=== PATIENT | male | born 1965 | race African-American/Black ===

== ENCOUNTER 2019-07-20 10:38 | Inpatient (IN) | payer OTHER ==
--- NOTE | 2019-07-20 11:01 | BHS.RME ---
Substance Use & Tx History - Substance Use History Opiates (Heroin) Substance amount: 3-4 bags Frequency of use: Daily Substance route: Inhalation (ex: sniffing or snorting) Date of Last Use: 07/19/19 Physical/Psych/Mental Status - Behavior General Behavior: Increased activity (restlessness, agitation) Eye Contact: Normal - Cooperativeness Cooperativeness: Cooperative - Thinking Thought Processes: Tight, Logical, Goal Directed Thought content: Future oriented - Physical Health Problems Is patient presently having any pain?: No Does patient presently have any injuries (include location): No Does patient currently have a fever: No Is patient : No COWS - Scale Resting Pulse: 1= [place] 81-100 Sweatin=Flushed/Facial Moisture Restless Observation: 1= Difficult to Sit Still Pupil Size: 0= Normal to Room Light Bone or Joint Aches: 1= Mild Discomfort Runny Nose/ Eye Tearin= Nasal Congestion GI Upset > 30mins: 1= Stomach Cramp Tremor Observation: 0= None Yawning Observation: 0= None Anxiety or Irritability: 2=Irritable/Anxious Goose Flesh Skin: 3=Piloerection (patient last used yesterday) COWS Score: 12
--- NOTE | 2019-07-20 13:09 | HP ---
COWS - Scale Resting Pulse: 1= [place] 81-100 Sweatin=Flushed/Facial Moisture Restless Observation: 1= Difficult to Sit Still Pupil Size: 0= Normal to Room Light Bone or Joint Aches: 1= Mild Discomfort Runny Nose/ Eye Tearin= Nasal Congestion GI Upset > 30mins: 1= Stomach Cramp Tremor Observation: 0= None Yawning Observation: 0= None Anxiety or Irritability: 2=Irritable/Anxious Goose Flesh Skin: 3=Piloerection (patient last used yesterday) COWS Score: 12 CIWA Score - Admission Criteria OASAS Guidelines: Admission for Medically Managed Detox: Requires at least one of the followin. CIWA greater than 12 2. Seizures within the past 24 hours 3. Delirium tremens within the past 24 hours 4. Hallucinations within the past 24 hours 5. Acute intervention needed for co occurring medical disorder 6. Acute intervention needed for co occurring psychiatric disorder 7. Severe withdrawal that cannot be handled at a lower level of care (continued vomiting, continued diarrhea, abnormal vital signs) requiring intravenous medication and/or fluids 8. Admitting History and Physical - Admission Chief Complaint: " I want to get my life together and stop using." History of Present Illness: 54 year old male with history of opioid dependence, marijuana use disorder and nicotine dependence. He was in detox 20 yeas ago in [facility]. He is S/P [facility] 4 233ks ago where he was told he had a " bad heart". He was told to follow up for the diagnosis. He has VALERA with one flight of stairs. He was given a diuretic. Heroin: 3-4 bags per day intranasally and last used 07/19/19 No OD and started using at age 29. Nicotine: 8-9 ciggs per day last used today. He started smoke at age 19 Marijuana: Very sporadic, last used 1 month ago. PMH: Heart Problem? Meds: Carvedilol 3.125mg daily and losartan 40 mg daily He is seeking detox because he is afraid of overdosing. He is also homeless. He is at high risk for OD and has co-morbid disorders that would complicated detox as an outpatient. He needs inpatient detox. History Source: Patient - Past Medical History Cardiovascular: Yes: Other (unknown cardiac condition) - Past Surgical History Past Surgical History: Yes: None - Smoking History Smoking history: Current every day smoker Have you smoked in the past 12 months: Yes Aproximately how many cigarettes per day: 9 - Alcohol/Substance Use Hx Alcohol Use: No History of Substance Use: reports: Heroin, Marijuana - Social History Usual Living Arrangement: Yes: Alone Admission ROS [facility] - [facility] Exam Limitations: No Limitations - Ebola screening Have you traveled outside of the country in the last 21 days: No Have you had contact with anyone from an Ebola affected area: No Have you been sick,other than usual withdrawal symptoms: No Do you have a fever: No - Review of Systems Constitutional: No Symptoms Reported EENT: reports: No Symptoms Reported Respiratory: reports: No Symptoms reported Cardiac: reports: No Symptoms Reported GI: reports: No Symptoms Reported : reports: No Symptoms Reported Musculoskeletal: reports: Other (bilateral pedal edema) Integumentary: reports: No Symptoms Reported Neuro: reports: No Symptoms reported Endocrine: reports: No Symptoms Reported Hematology: reports: No Symptoms Reported Psychiatric: reports: Judgement Intact, Orientated x3, Agitated, Anxious Other Systems: Reviewed and Negative Patient History - Patient Medical History Hx Anemia: No Hx Asthma: No Hx Chronic Obstructive Pulmonary Disease (COPD): No Hx Cancer: No Hx Cardiac Disorders: No Hx Congestive Heart Failure: No Hx Hypertension: Yes Hx Hypercholesterolemia: No Hx Pacemaker: No HX Cerebrovascular Accident: No Hx Seizures: No Hx Dementia: No Hx Diabetes: No Hx Gastrointestinal Disorders: No Hx Liver Disease: No Hx Genitourinary Disorders: No Hx Sexually Transmitted Disorders: No Hx Renal Disease (ESRD): No Hx Thyroid Disease: No Hx Human Immunodeficiency Virus (HIV): No (last tested 2 months ago negative) Hx Hepatitis C: No (last tested 2 weeks ago negative) Hx Depression: No Hx Suicide Attempt: No Hx Bipolar Disorder: No Hx Schizophrenia: No - Patient Surgical History Past Surgical History: No - PPD History Previous Implant?: Yes Documented Results: Negative w/o proof Implanted On Prior [facility] Admission?: Yes Date: 04/27/19 (at [facility]) Results: negative PPD to be Administered?: Yes - Smoking Cessation Smoking history: Current every day smoker Have you smoked in the past 12 months: Yes Aproximately how many cigarettes per day: 9 Hx Chewing Tobacco Use: No Initiated information on smoking cessation: Yes 'Breaking Loose' booklet given: 07/20/19 - Substances abused Heroin Other (specify): 3-4 bags Substance route: Inhalation Frequency: Daily Amount used: 3-4 bags Age of first use: 29 Date of last use: 07/19/19 Marijuana/Hashish Substance route: Smoking Frequency: 1-3 times last 30 days Amount used: 1 blunt Age of first use: 21 Date of last use: 06/22/19 Admission Physical Exam [facility] - Physical General Appearance: Yes: Mild Distress, Tremorous, Irritable, Sweating, Anxious HEENTM: Yes: EOMI, Hearing grossly Normal, Normal ENT Inspection, Normocephalic , Normal Voice, TUCKER, Pharynx Normal, Tm's normal Respiratory: Yes: Chest Non-Tender, Lungs Clear, Normal Breath Sounds, No Respiratory Distress, No Accessory Muscle Use Neck: Yes: No masses,lesions,Nodules, Supple, Trachea in good position Breast: Yes: Within Normal Limits Cardiology: Yes: Regular Rhythm, S1, S2, Tachycardia Abdominal: Yes: Normal Bowel Sounds, Non Tender, Flat, Soft Genitourinary: Yes: Within Normal Limits Back: Yes: Normal Inspection Musculoskeletal: Yes: full range of Motion, Gait Steady, Pelvis Stable Extremities: Yes: Normal Capillary Refill, Normal Inspection, Normal Range of Motion, Non-Tender Neurological: Yes: exit booth agent II-XII NML intact, Fully Oriented, Alert, Motor Strength 5/5, Normal Mood/Affect, Normal Response Integumentary: Yes: Normal Color, Warm Lymphatic: Yes: Within Normal Limits - Diagnostic (1) Opioid dependence with withdrawal Current Visit: Yes Status: Acute (2) Nicotine dependence Current Visit: Yes Status: Acute (3) Cannabis use disorder, mild, abuse Current Visit: Yes Status: Acute (4) Hypertension Current Visit: Yes Status: Acute Cleared for Admission [facility] - Detox or Rehab [facility] Level of Care: Medically Managed Detox Regimen/Protocol: Methadone Claeared for Rehab Admission: No Screened but not Admitted - Documentation of Visit Screened but not Admitted: No Breathalyzer - Breathalyzer Breathalyzer: 0 Urine Drug Screen - Test Device Lot number: [id number] Expiration date: 04/24/21 - Control Is test valid?: Yes - Results Drug screen NEGATIVE: No Urine drug screen results: THC-Marijuana, WALE-Cocaine, FEN-Fentanyl, MOP-Opiates Inpatient Rehab Admission - Rehab Decision to Admit Inpatient rehab admission?: No
[2019-07-20] MEDS ORDERED: BISMUTH SUBSALICYLATE 262 MG/15 ML BTL PO PRN (13:21)
[2019-07-20] MEDS ORDERED: MAGNESIUM CITRATE 300 ML BOTTLE PO PRN (13:21)
[2019-07-20] MEDS ORDERED: MENTHOL/PHENOL 1 EACH UD MM PRN (13:21)
[2019-07-20] MEDS ORDERED: ACETAMINOPHEN 325 MG TABLET (FP) PO PRN ×2 (13:21)
[2019-07-20] MEDS ORDERED: hydrOXYzine PAMOATE 25 MG CAPSULE (FP) PO PRN (13:21)
[2019-07-20] MEDS ORDERED: MAG HYDROX/AL HYDROX/SIMETH 30 ML UNIT-DOSE CUP PO PRN (13:21)
[2019-07-20] MEDS ORDERED: MAGNESIUM HYDROX 2400MG/30ML ORAL SUSPENSION 30 ML CUP PO PRN (13:21)
[2019-07-20] MEDS ORDERED: IBUPROFEN 400 MG TABLET (FP) PO PRN (13:21)
[2019-07-20] MEDS ORDERED: cloNIDine HCL 0.1 MG TABLET PO PRN (13:21)
[2019-07-20] MEDS ORDERED: METHOCARBAMOL 500 MG TABLET PO PRN (13:21)
[2019-07-20 13:42] VITALS: BMI 23.7
[2019-07-20] MEDS ORDERED: METHADONE HCL 10 MG TABLET (FOR DETOX USE ONLY) PO ONE (14:20)
[2019-07-20] MEDS: NICOTINE 7 MG/24 HOURS TOPICAL PATCH TD SCH (14:40)
[2019-07-20] MEDS: LOSARTAN 50MG/HCTZ 12.5MG 1 TAB (FP) PO SCH (14:41)
[2019-07-20] MEDS: CARVEDILOL 3.125 MG TABLET (FP) PO SCH ×2 (14:41→21:31)
[2019-07-20] MEDS: THIAMINE HCL 100 MG TABLET (FP) PO SCH (21:31)
[2019-07-21] MEDS ORDERED: METHADONE HCL 5 MG TABLET (FOR DETOX USE ONLY) ONE (09:11)
[2019-07-21] MEDS ORDERED: METHADONE HCL 10 MG TABLET (FOR DETOX USE ONLY) ONE (09:11)
[2019-07-21] MEDS ORDERED: METHADONE (DETOX) 20 MG, METHADONE (DETOX) 5 MG PO ONE (10:00)
[2019-07-21] MEDS: LOSARTAN 50MG/HCTZ 12.5MG 1 TAB (FP) PO SCH (10:23)
[2019-07-21] MEDS: PRENATAL VITAMINS W/ FOLIC ACID TABLET (FP) PO SCH (10:23)
[2019-07-21] MEDS: CARVEDILOL 3.125 MG TABLET (FP) PO SCH ×2 (10:24→22:52)
[2019-07-21] MEDS: NICOTINE 7 MG/24 HOURS TOPICAL PATCH TD SCH (10:51)
[2019-07-21 10:56] LABS: HEMATOCRIT 32.5 % (35.4-49); HEMOGLOBIN 10.6 GM/dL (11.7-16.9); MCHC 32.7 g/dl (32.0-35.9); MEAN CELL VOLUME 85.6 fl (80-96); MEAN PLT VOLUME 8.4 fl (7.5-11.1); PLATELET COUNT 332 K/MM3 (134-434); RDW 15.9 % (11.9-15.9); WHITE BLOOD COUNT 7.8 K/mm3 (4.0-10.0)
[2019-07-21] MEDS ORDERED: LOPERAMIDE HCL 2 MG CAPSULE PO ONE (11:09)
[2019-07-21] MEDS ORDERED: ACETAMINOPHEN 325 MG TABLET (FP) PO ONE (11:09)
[2019-07-21] MEDS ORDERED: CARVEDILOL 3.125 MG TABLET (FP) PO SCH (11:11)
[2019-07-21] MEDS ORDERED: LOSARTAN 50MG/HCTZ 12.5MG 1 TAB (FP) PO SCH (11:12)
--- NOTE | 2019-07-21 11:17 | PN ---
BHS COWS - Scale Resting Pulse: 1= [place] 81-100 Sweatin= Chills/Flushing Restless Observation: 0= Sits Still Pupil Size: 1= Pupils >than Normal Bone or Joint Aches: 2= Severe Diffuse Aches Runny Nose/ Eye Tearin= None GI Upset > 30mins: 0= None Tremor Observation of Outstretched Hands: 0= None Yawning Observation: 0= None Anxiety or Irritability: 2=Irritable/Anxious Goose Flesh Skin: 3=Piloerection COWS Score: 10 BHS Progress Note (SOAP) Subjective: 54 years old male admitted on 07/20/19 for opiate withdrawal sx management treating with methadone detox regiment general body aches tylenal 650mg po x 1 loose stool after breakfast imodium 4 mg po x 1 Objective: 07/21/19 11:16 Vital Signs Temperature 96.7 F L 07/21/19 08:46 Pulse Rate 89 07/21/19 08:46 Respiratory Rate 18 07/21/19 08:46 Blood Pressure 116/77 07/21/19 08:46 O2 Sat by Pulse Oximetry (%) Laboratory Last Values WBC 7.8 K/mm3 (4.0-10.0) 07/21/19 08:00 RBC 3.80 M/mm3 (4.00-5.60) L 07/21/19 08:00 Hgb 10.6 GM/dL (11.7-16.9) L 07/21/19 08:00 Hct 32.5 % (35.4-49) L 07/21/19 08:00 MCV 85.6 fl (80-96) 07/21/19 08:00 MCH 28.0 pg (25.7-33.7) 07/21/19 08:00 MCHC 32.7 g/dl (32.0-35.9) 07/21/19 08:00 RDW 15.9 % (11.9-15.9) 07/21/19 08:00 Plt Count 332 K/MM3 (134-434) 07/21/19 08:00 MPV 8.4 fl (7.5-11.1) 07/21/19 08:00 lab noted Assessment: 07/21/19 11:17 opiate withdrawal Plan: methadone regiment
[2019-07-21 11:39] LABS: ALBUMIN 2.1 g/dl (3.4-5.0); BILIRUBIN,TOTAL 0.3 mg/dL (0.2-1); BLOOD UREA NITROGEN 30.5 mg/dL (7-18); CALCIUM 8.4 mg/dL (8.5-10.1); CREATININE 1.2 mg/dL (0.55-1.3); POTASSIUM 3.5 mmol/L (3.5-5.1); TOT PROT 5.3 g/dl (6.4-8.2)
[2019-07-21] MEDS: THIAMINE HCL 100 MG TABLET (FP) PO SCH (22:52)
[2019-07-21] MEDS: MELATONIN 5 MG TABLETS PO PRN (22:52)
[2019-07-22] MEDS ORDERED: METHADONE HCL 10 MG TABLET (FOR DETOX USE ONLY) PO ONE (10:00)
[2019-07-22] MEDS: LOSARTAN 50MG/HCTZ 12.5MG 1 TAB (FP) PO SCH (10:16)
[2019-07-22] MEDS: CARVEDILOL 3.125 MG TABLET (FP) PO SCH ×2 (10:16→22:39)
[2019-07-22] MEDS: NICOTINE 7 MG/24 HOURS TOPICAL PATCH TD SCH (10:17)
[2019-07-22] MEDS: PRENATAL VITAMINS W/ FOLIC ACID TABLET (FP) PO SCH (10:17)
--- NOTE | 2019-07-22 12:03 | PN ---
BHS COWS - Scale Resting Pulse: 1= [place] 81-100 Sweatin= Chills/Flushing Restless Observation: 0= Sits Still Pupil Size: 1= Pupils >than Normal Bone or Joint Aches: 1= Mild Discomfort Runny Nose/ Eye Tearin= None GI Upset > 30mins: 2= Nausea/Diarrhea Tremor Observation of Outstretched Hands: 1= Tremor [place], Not Seen Yawning Observation: 0= None Anxiety or Irritability: 1=Feels Anxious/Irritable Goose Flesh Skin: 0=Smooth Skin COWS Score: 8 BHS Progress Note (SOAP) Subjective: 54 years old male admitted on 07/20/19 for opiate withdrawal sx management treating with methadone detox regiment feeling ok today ambulating on hallway with cane steady gait with mild general body aches Objective: 07/22/19 12:08 Vital Signs Temperature 96.7 F L 07/22/19 08:38 Pulse Rate 90 07/22/19 08:38 Respiratory Rate 18 07/22/19 08:38 Blood Pressure 110/79 07/22/19 08:38 O2 Sat by Pulse Oximetry (%) Laboratory Last Values WBC 7.8 K/mm3 (4.0-10.0) 07/21/19 08:00 RBC 3.80 M/mm3 (4.00-5.60) L 07/21/19 08:00 Hgb 10.6 GM/dL (11.7-16.9) L 07/21/19 08:00 Hct 32.5 % (35.4-49) L 07/21/19 08:00 MCV 85.6 fl (80-96) 07/21/19 08:00 MCH 28.0 pg (25.7-33.7) 07/21/19 08:00 MCHC 32.7 g/dl (32.0-35.9) 07/21/19 08:00 RDW 15.9 % (11.9-15.9) 07/21/19 08:00 Plt Count 332 K/MM3 (134-434) 07/21/19 08:00 MPV 8.4 fl (7.5-11.1) 07/21/19 08:00 Sodium 141 mmol/L (136-145) 07/21/19 08:00 Potassium 3.5 mmol/L (3.5-5.1) 07/21/19 08:00 Chloride 108 mmol/L (98-107) H 07/21/19 08:00 Carbon Dioxide 24 mmol/L (21-32) 07/21/19 08:00 Anion Gap 9 MMOL/L (8-16) 07/21/19 08:00 BUN 30.5 mg/dL (7-18) H 07/21/19 08:00 Creatinine 1.2 mg/dL (0.55-1.3) 07/21/19 08:00 Est GFR (CKD-EPI)AfAm 79.53 07/21/19 08:00 Est GFR (CKD-EPI)NonAf 68.62 07/21/19 08:00 Random Glucose 94 mg/dL (74-106) 07/21/19 08:00 Calcium 8.4 mg/dL (8.5-10.1) L 07/21/19 08:00 Total Bilirubin 0.3 mg/dL (0.2-1) 07/21/19 08:00 AST 28 U/L (15-37) 07/21/19 08:00 ALT 44 U/L (13-61) 07/21/19 08:00 Alkaline Phosphatase 213 U/L (45-117) H 07/21/19 08:00 Total Protein 5.3 g/dl (6.4-8.2) L 07/21/19 08:00 Albumin 2.1 g/dl (3.4-5.0) L 07/21/19 08:00 RPR Titer Nonreactive (NONREACTIVE) 07/21/19 08:00 lab noted bun elevation repeat bun Assessment: 07/22/19 12:11 opiate withdrawal Plan: methadone regiment
[2019-07-22] MEDS: MELATONIN 5 MG TABLETS PO PRN (22:39)
[2019-07-22] MEDS: THIAMINE HCL 100 MG TABLET (FP) PO SCH (22:39)
[2019-07-23] MEDS ORDERED: METHADONE HCL 10 MG TABLET (FOR DETOX USE ONLY) ONE (09:31)
[2019-07-23] MEDS ORDERED: METHADONE HCL 5 MG TABLET (FOR DETOX USE ONLY) ONE (09:32)
[2019-07-23] MEDS ORDERED: METHADONE (DETOX) 10 MG, METHADONE (DETOX) 5 MG PO ONE (10:00)
[2019-07-23] MEDS: PRENATAL VITAMINS W/ FOLIC ACID TABLET (FP) PO SCH (10:11)
[2019-07-23] MEDS: LOSARTAN 50MG/HCTZ 12.5MG 1 TAB (FP) PO SCH (10:11)
[2019-07-23] MEDS: CARVEDILOL 3.125 MG TABLET (FP) PO SCH ×2 (10:11→22:22)
[2019-07-23] MEDS: NICOTINE 7 MG/24 HOURS TOPICAL PATCH TD SCH (10:13)
--- NOTE | 2019-07-23 10:50 | PN ---
BHS COWS - Scale Resting Pulse: 1= [place] 81-100 Sweatin= No chills or Flushing Restless Observation: 1= Difficult to Sit Still Pupil Size: 1= Pupils >than Normal Bone or Joint Aches: 1= Mild Discomfort Runny Nose/ Eye Tearin= Nasal Congestion GI Upset > 30mins: 1= Stomach Cramp Tremor Observation of Outstretched Hands: 1= Tremor [place], Not Seen Yawning Observation: 1= 1-2x During Session Anxiety or Irritability: 2=Irritable/Anxious Goose Flesh Skin: 0=Smooth Skin COWS Score: 10 [facility] Progress Note (SOAP) Subjective: alert,irritable,anxious, interrupted sleep,pain in the body Objective: 07/23/19 10:49 Vital Signs Temperature 96.6 F L 07/23/19 08:52 Pulse Rate 82 07/23/19 08:52 Respiratory Rate 16 07/23/19 08:52 Blood Pressure 106/71 07/23/19 08:52 O2 Sat by Pulse Oximetry (%) 07/23/19 10:50 repeat bun pending Assessment: 07/23/19 10:51 withdrawal symptom Plan: continue detox methadone regimen,encourage oral fluid
--- NOTE | 2019-07-23 12:56 | PN ---
BHS COWS - Scale Resting Pulse: 0= [place] 80 or Below Sweatin= No chills or Flushing Restless Observation: 0= Sits Still Pupil Size: 0= Normal to Room Light Bone or Joint Aches: 0= None Runny Nose/ Eye Tearin= Runny Nose/Eyes GI Upset > 30mins: 1= Stomach Cramp Tremor Observation of Outstretched Hands: 0= None Yawning Observation: 0= None Anxiety or Irritability: 1=Feels Anxious/Irritable Goose Flesh Skin: 0=Smooth Skin COWS Score: 4 BHS Progress Note (SOAP) Subjective: Laboratory Tests 07/21/19 07/21/19 07/21/19 08:00 08:00 08:00 WBC 7.8 RBC 3.80 L Hgb 10.6 L Hct 32.5 L MCV 85.6 MCH 28.0 MCHC 32.7 RDW 15.9 Plt Count 332 MPV 8.4 Sodium 141 Potassium 3.5 Chloride 108 H Carbon Dioxide 24 Anion Gap 9 BUN 30.5 H Creatinine 1.2 Est GFR (CKD-EPI)AfAm 79.53 Est GFR (CKD-EPI)NonAf 68.62 Random Glucose 94 Calcium 8.4 L Total Bilirubin 0.3 AST 28 ALT 44 Alkaline Phosphatase 213 H Total Protein 5.3 L Albumin 2.1 L RPR Titer Nonreactive 07/23/19 08:05 WBC RBC Hgb Hct MCV MCH MCHC RDW Plt Count MPV Sodium Potassium Chloride Carbon Dioxide Anion Gap BUN 17.4 Creatinine Est GFR (CKD-EPI)AfAm Est GFR (CKD-EPI)NonAf Random Glucose Calcium Total Bilirubin AST ALT Alkaline Phosphatase Total Protein Albumin RPR Titer Vital Signs Temperature 96.6 F L 07/23/19 08:52 Pulse Rate 82 07/23/19 08:52 Respiratory Rate 16 07/23/19 08:52 Blood Pressure 106/71 07/23/19 08:52 O2 Sat by Pulse Oximetry (%) Subjective: complains of dry skin Objective: 07/23/19 12:56 PE Gnl: WDWN, in no distress Mental status: awake, alert, nl language Motor: grossly nl Coord: nl Assessment: 07/23/19 12:56 1. Opioid use disorder 2. Dry skin Plan: 1. continue Methadone withdrawal protocol
[2019-07-23] MEDS ORDERED: COLLOIDAL OATMEAL 1 BAR EACH TP PRN (13:00)
[2019-07-23] MEDS ORDERED: VITAMINS A AND D TOPICAL OINTMENT 60 GM TUBE TP PRN (13:01)
[2019-07-23] MEDS: THIAMINE HCL 100 MG TABLET (FP) PO SCH (22:22)
[2019-07-23] MEDS: MELATONIN 5 MG TABLETS PO PRN (22:23)
[2019-07-24 09:51] VITALS: BP 110/75; PULSE 95; TEMP 95.8
[2019-07-24] MEDS ORDERED: METHADONE HCL 10 MG TABLET (FOR DETOX USE ONLY) PO ONE (10:00)
[2019-07-24] MEDS: LOSARTAN 50MG/HCTZ 12.5MG 1 TAB (FP) PO SCH (10:08)
[2019-07-24] MEDS: PRENATAL VITAMINS W/ FOLIC ACID TABLET (FP) PO SCH (10:09)
[2019-07-24] MEDS: CARVEDILOL 3.125 MG TABLET (FP) PO SCH (10:09)
[2019-07-24] MEDS: NICOTINE 7 MG/24 HOURS TOPICAL PATCH TD SCH (10:09)
--- NOTE | 2019-07-24 13:25 | DS ---
[facility] Detox Discharge Summary Admission Date: 07/20/19 Discharge Date: 07/24/19 - History Present History: Cannabis Dependence, Opioid Dependence Additional Comments: As per H&P: "54 year old male with history of opioid dependence, marijuana use disorder and nicotine dependence. He was in detox 20 yeas ago in [facility]. He is S/P [facility] 4 233ks ago where he was told he had a " bad heart". He was told to follow up for the diagnosis. He has VALERA with one flight of stairs. He was given a diuretic. Heroin: 3-4 bags per day intranasally and last used 07/19/19 No OD and started using at age 29. Nicotine: 8-9 ciggs per day last used today. He started smoke at age 19. Marijuana: Very sporadic, last used 1 month ago.PMH: Heart Problem? Meds: Carvedilol 3.125mg daily and losartan 40 mg daily. He is seeking detox because he is afraid of overdosing. He is also homeless. He is at high risk for OD and has co-morbid disorders that would complicated detox as an outpatient. He needs inpatient detox". Pt is medically cleared and discharged today. Pt is not on detox protocol. Pt requested to leave today. Pt is encouraged to follow-up with an outpatient CD program and also to follow-up with his pmd. Pt verbalized understanding of the information given. Pt is alert and oriented x3 and in no acute respiratory distress. Pertinent Past History: h/o heroin and cannabis use disorder. - Physical Exam Results Vital Signs: Vital Signs Temperature 95.8 F L 07/24/19 09:17 Pulse Rate 95 H 07/24/19 09:17 Respiratory Rate 16 07/24/19 09:17 Blood Pressure 110/75 07/24/19 09:17 O2 Sat by Pulse Oximetry (%) Vital Signs 07/24/19 07/24/19 07/24/19 06:33 07:15 09:17 Temperature 97.6 F 95.8 F L Pulse Rate 92 H 95 H Respiratory 16 16 16 Rate Blood Pressure 100/64 110/75 Laboratory Last Values WBC 7.8 K/mm3 (4.0-10.0) 07/21/19 08:00 RBC 3.80 M/mm3 (4.00-5.60) L 07/21/19 08:00 Hgb 10.6 GM/dL (11.7-16.9) L 07/21/19 08:00 Hct 32.5 % (35.4-49) L 07/21/19 08:00 MCV 85.6 fl (80-96) 07/21/19 08:00 MCH 28.0 pg (25.7-33.7) 07/21/19 08:00 MCHC 32.7 g/dl (32.0-35.9) 07/21/19 08:00 RDW 15.9 % (11.9-15.9) 07/21/19 08:00 Plt Count 332 K/MM3 (134-434) 07/21/19 08:00 MPV 8.4 fl (7.5-11.1) 07/21/19 08:00 Sodium 141 mmol/L (136-145) 07/21/19 08:00 Potassium 3.5 mmol/L (3.5-5.1) 07/21/19 08:00 Chloride 108 mmol/L (98-107) H 07/21/19 08:00 Carbon Dioxide 24 mmol/L (21-32) 07/21/19 08:00 Anion Gap 9 MMOL/L (8-16) 07/21/19 08:00 BUN 17.4 mg/dL (7-18) 07/23/19 08:05 Creatinine 1.2 mg/dL (0.55-1.3) 07/21/19 08:00 Est GFR (CKD-EPI)AfAm 79.53 07/21/19 08:00 Est GFR (CKD-EPI)NonAf 68.62 07/21/19 08:00 Random Glucose 94 mg/dL (74-106) 07/21/19 08:00 Calcium 8.4 mg/dL (8.5-10.1) L 07/21/19 08:00 Total Bilirubin 0.3 mg/dL (0.2-1) 07/21/19 08:00 AST 28 U/L (15-37) 07/21/19 08:00 ALT 44 U/L (13-61) 07/21/19 08:00 Alkaline Phosphatase 213 U/L (45-117) H 07/21/19 08:00 Total Protein 5.3 g/dl (6.4-8.2) L 07/21/19 08:00 Albumin 2.1 g/dl (3.4-5.0) L 07/21/19 08:00 RPR Titer Nonreactive (NONREACTIVE) 07/21/19 08:00 Labs noted. Pertinent Admission Physical Exam Findings: withdrawal symptoms. - Treatment Hospital Course: Detox Protocol Followed, Detoxed Safely, Responded well, Discharged Condition Good - Medication Discharge Medications: Ambulatory Orders Carvedilol [Coreg -] 3.125 mg PO BID 07/20/19 Losartan Potassium [Cozaar -] 50 mg PO DAILY 07/20/19 - Diagnosis (1) Cannabis use disorder, mild, abuse Current Visit: Yes Status: Chronic (2) Hypertension Current Visit: Yes Status: Chronic (3) Nicotine dependence Current Visit: Yes Status: Chronic (4) Opioid dependence with withdrawal Current Visit: Yes Status: Acute - AMA Did Patient Leave Against Medical Advice: No
[2019-07-25] MEDS ORDERED: METHADONE HCL 5 MG TABLET (FOR DETOX USE ONLY) PO ONE (06:00)
== END 2019-07-24 12:26 | disposition home or self-care (01) | DRG 773 ==
LOC: YASAS 10:38 → Y3N 14:01
PROVIDERS: ADMIT Allergy & Immunology; ATTEND Allergy & Immunology
PROC: HZ2ZZZZ Detoxification Services for Substance Abuse Treatment (ICD-10-PCS; principal; 2019-07-20)
DX: F11.23 Opioid dependence with withdrawal (principal); F12.10 Cannabis abuse, uncomplicated; F17.210 Nicotine dependence, cigarettes, uncomplicated; I10 Essential (primary) hypertension; L85.3 Xerosis cutis; R60.0 Localized edema; R06.09 Other forms of dyspnea; Z99.89 Dependence on other enabling machines and devices; Z59.0 Homelessness
CPT/HCPCS: 36415; 80053; 84520; 85027; 86593